=== PATIENT | male | born 1970 | race Caucasian/White ===

== ENCOUNTER 2020-08-14 12:19 | Inpatient (IN) | payer OTHER ==
[~2020-08-14] VITALS: Ht 177.8 cm; Wt 67.8 kg
[2020-08-14 13:27] LABS: HEMOGLOBIN 18.7 gm/dl (14.0-17.5); RED BLOOD COUNT 5.98 M/UL (4.20-5.50); WHITE BLOOD COUNT 11.2 K/UL (4.5-11.0)
[2020-08-15 04:46] LABS: HEMOGLOBIN 13.8 gm/dl (14.0-17.5); RED BLOOD COUNT 4.43 M/UL (4.20-5.50); WHITE BLOOD COUNT 8.3 K/UL (4.5-11.0)
[2020-08-15 04:59] LABS: BUN/CREATININE RATIO 20 (0-10)
[2020-08-16 05:56] LABS: BUN/CREATININE RATIO 22 (0-10)
[2020-08-17] MEDS ORDERED: FLOMAX 0.4 MG0.4 MG PO (15:00)
[2020-08-17] MEDS ORDERED: ECOTRIN81 MG PO (15:08)
[2020-08-17] MEDS ORDERED: ISOSORBIDE MONO30 MG PO (15:12)
== END 2020-08-17 15:43 | DRG 287 ==
LOC: ER1 12:19 → CDU 20:14 → MED SURG 4 20:14
PROVIDERS: Emergency Medicine; Internal Medicine Infectious Disease; ADMIT Internal Medicine
PROC: B24BZZ4 Ultrasonography of Heart with Aorta, Transesophageal (ICD-10-PCS; 2020-08-15)
PROC: 4A023N7 Measurement of Cardiac Sampling and Pressure, Left Heart, Percutaneous Approach (ICD-10-PCS; principal; 2020-08-17)
PROC: B2111ZZ Fluoroscopy of Multiple Coronary Arteries using Low Osmolar Contrast (ICD-10-PCS; 2020-08-17)
DX: I25.10 Atherosclerotic heart disease of native coronary artery without angina pectoris (principal); N17.9 Acute kidney failure, unspecified; E87.1 Hypo-osmolality and hyponatremia; E87.2 Acidosis; N40.0 Benign prostatic hyperplasia without lower urinary tract symptoms; Z20.822 Contact with and (suspected) exposure to COVID-19; R33.8 Other retention of urine; F17.210 Nicotine dependence, cigarettes, uncomplicated; E78.5 Hyperlipidemia, unspecified; N18.9 Chronic kidney disease, unspecified; I12.9 Hypertensive chronic kidney disease with stage 1 through stage 4 chronic kidney disease, or unspecified chronic kidney disease; Z91.14 Patient's other noncompliance with medication regimen; I25.2 Old myocardial infarction; Z82.49 Family history of ischemic heart disease and other diseases of the circulatory system; Z90.49 Acquired absence of other specified parts of digestive tract
CPT/HCPCS: ECHO; 36415; 71045; 76870; 78452; 80048; 80053; 80061; 81001; 82550; 82553; 83036; 83605; 83690; 84484; 85025; 85610; 85730; 86140; 93005; 93017; 93306; 94640; 94664; 94760; 99152; 99285; A9502; C1769; C1894; J1644; J1650; J2250; J2270; J2785; J3010; Q9967; U0002